=== PATIENT | female | born 1990 | race Caucasian/White ===

== ENCOUNTER 2020-05-10 20:55 | Emergency (ER) | payer MEDICAID, OTHER ==
[~2020-05-10] VITALS: Ht 170.2 cm; Wt 63.6 kg
[~2020-05-10 20:55] MED LIST: FLUO40CA9 PO; IBUP-1222 PO; OXYC1TAB8 PO
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
--- NOTE | 2020-05-10 21:21 | NUR ---
IV ESTABLISHED EN ROUTE; 400ML NS AND 4MG ZOFRAN AMDIN EN ROUTE.
[2020-05-10] MEDS ORDERED: CLON1TAB23 PO (21:29)
[2020-05-10] MEDS ORDERED: ZIPR20CA3 PO (21:29)
[2020-05-10] MEDS ORDERED: HYDR-826 PO (21:29)
--- NOTE | 2020-05-10 21:36 | NUR ---
SELINA NOONAN IN TO EVAL PT. AND DISCUSS POC. PT. REMOVED ALL MONITORS. MONTIORS REPLACED AND PT. EDUCATED ON NEED TO LEAVE MONIOTRS IN PLACE. PT. VERBALIZED UNDERSTANDING. SITTER REMAINS IN DIRECT VIEW. SITTER ALSO AWARE TO REMIND PT. TO NOT REMOVE MONITORS. VS UPDATED.
[2020-05-10 21:54] LABS: BASOPHILS % (AUTO) 1 % (0-1); EOSINOPHILS % (AUTO) 1 % (1-7); LYMPHOCYTES % (AUTO) 41 % (22-44); MEAN CORPUSCULAR HEMOGLOBIN 31.2 pg (27.0-34.8); MEAN CORPUSCULAR HGB CONC 33.7 g/dL (32.4-35.8); MEAN PLATELET VOLUME 8.5 fL (7.4-10.4); MONOCYTES % (AUTO) 5 % (2-9); NEUTROPHILS % (AUTO) 52 % (42-75); PLATELET COUNT 276 x10^3/uL (130-400); RED BLOOD COUNT 4.33 x10^6/uL (3.82-5.3); RED CELL DISTRIBUTION WIDTH 13.7 % (9.6-15.2)
[2020-05-10 21:56] LABS: MD NO
[2020-05-10 22:06] LABS: ALANINE AMINOTRANSFERASE 31 U/L (12-78); ALBUMIN 3.6 g/dL (3.4-5.0); ANION GAP 5 mmol/L (5-15); CALCIUM 7.8 mg/dL (8.5-10.1); CHLORIDE 115 mmol/L (98-107); CREATININE 0.84 mg/dL (0.55-1.02); SALICYLATE LEVEL 3.6 mg/dL (2.8-20.0)
[2020-05-10 22:12] LABS: ALKALINE PHOSPHATASE 74 U/L (45-117); BILIRUBIN,TOTAL 0.2 mg/dL (0.2-1.0); TOTAL PROTEIN 7.2 g/dL (6.4-8.2)
[2020-05-10 23:08] LABS: MICROSCOPIC INDICATED
[2020-05-10 23:13] LABS: AMPHETAMINE SCREEN, URINE Negative (Negative); BARBITURATE SCREEN, URINE Negative (Negative); BENZODIAZEPINE SCREEN, URINE Positive (Negative); CANNABINOID SCREEN, URINE Positive (Negative); COCAINE SCREEN, URINE Negative (Negative); METHADONE SCREEN, URINE Negative (Negative); OPIATE SCREEN, URINE Negative (Negative)
[2020-05-10] MEDS ORDERED: ZIPRASIDONE 20 MG INJ IM ONE ×2 (23:30→23:40)
--- NOTE | 2020-05-10 23:42 | NUR ---
PT. CONTINUALLY RIPPING OFF MONITORS AND HAS NOW RIPPED OUT IV. TIP INTACT. PT. EDUCATED ON LEGAL HOLD PROCESS. PT. SOUTING AT THIS RN. PT. 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 PT. UNCOOPEATIVE AND VERBALLY AGRESSIVE. NEW ORDERS RECEIVED.
--- NOTE | 2020-05-11 00:13 | NUR ---
SECURITY CALLED PT. BANGING ON DOOR AND NOT LETTING STAFF IN. PT. VERY UNCOOPERATIVE. HAS BEEN MEDICATED PER JUN. PT. WAS REPORTING TO THIS RN THAT SHE IS CONCERNED ABOUT THE SAFETY OF HER 5 YEAR OLD DAUGHTER. CALLED [facility] FOR A WELL CHECK; THEY REPORTED "BASED ON THE OFFICERS PLACING PT. ON A LEGAL HOLD AND THE FACT THAT THE PT. ISN'T SOBER WE WILL NOT BE GOING FORWARD WITH A WELL CHECK." ALSO "THE CHILD'S FATHER TOOK THE DAUGHTER TO A [facility] BECAUSE HE WAS CONCERNED ABOUT THE CHILD'S SAFETY BASED ON THE PATIENT'S CONDITION."
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
--- NOTE | 2020-05-11 00:39 | NUR ---
[facility] CALLED BACK AND STATED THAT THEY WILL COME OUT AND TAKE STATEMENTS FROM SECURITY OFFICERS WHEN PT. IS MEDICALLY CLEARED.
--- NOTE | 2020-05-11 00:58 | NUR ---
PT. HAS BEEN PROVIDED WITH COOLING MEASURES TO FACE/EYES. FACE SPRAYED MULTIPLE TIMES WITH COOL DOWN SPRAY AND COOL WASHCLOTHS CONTINUALLY PROVIDED WELL. PROVIDED WITH ICE WATER.
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
--- NOTE | 2020-05-11 02:45 | NUR ---
RESTRAINTS REMOVED AT THIS TIME. PT. CURLED UP INTO POSITION. LIMITS SET AND POC RE-DISCUSSED.
--- NOTE | 2020-05-11 02:55 | NUR ---
REPORT TO SIMONE WILSON TO ASSUME CARE OF PT. AT THIS TIME.
--- NOTE | 2020-05-11 05:45 | NUR ---
PT RESTING IN BED, PT ED ROOM SI SECURE WITH SITTER AT DOOR. PT IN FLOOR BED. PT BREATHING EQUAL AND UNLABORED.
[2020-05-11 06:19] VITALS: BP 124/74
--- NOTE | 2020-05-11 06:20 | NUR ---
pt o2 sat 93% on room air for last hour. pt ambulated without difficulty to bathroom and back to pt room.
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
--- NOTE | 2020-05-11 07:22 | NUR ---
REPORT FROM STEVE PT SLEEPING.
--- NOTE | 2020-05-11 08:40 | NUR ---
[facility] HERE FOR PATIENT, MOTHER CALLED. PT OK TO GIVE INFO
--- NOTE | 2020-05-11 09:07 | NUR ---
PT ISAURA W RPHarvinder. ALL BELONGINGS W PATIENT
== END 2020-05-11 09:08 | disposition home or self-care (01) ==
LOC: ED 22:58
DX: T42.4X2A Poisoning by benzodiazepines, intentional self-harm, initial encounter (principal); R94.31 Abnormal electrocardiogram [ECG] [EKG]; Y92.89 Other specified places as the place of occurrence of the external cause
CPT/HCPCS: 36415; 80053; 80299; 80307; 80320; 80329; 81001; 84703; 85025; 87086; 93005; 96372; 99285; J3486; G0480